=== PATIENT | female | born 1960 | race Caucasian/White ===

== ENCOUNTER 2016-12-01 04:51 | Day surgery (SDC) | payer OTHER ==
[2016-11-17 10:29] VITALS: BMI 40.0
[~2016-12-01] VITALS: Ht 165.1 cm; Wt 109.1 kg
[~2016-12-01 04:51] MED LIST: ACIT1CAP PO; CLOB-77 TOP; MECL1TAB42 PO; MULT-506 PO; OXYBUTYNIN PO; OXYC-609 PO; PRLSR20 PO; RANI300T2 PO; TRAM-10 PO
[2016-12-01 05:39] VITALS: BP 149/76; PULSE 76; TEMP 36.4; O2SAT 94; Ht 165.1 cm; Wt 109.1 kg
[2016-12-01] MEDS ORDERED: SCOPOLAMINE 1.5 MG TDSY TD SCH (06:00)
[2016-12-01] MEDS ORDERED: CEFAZOLIN 2000 MG/60 ML D5W IV SCH (06:00)
[2016-12-01] MEDS ORDERED: LACTATED RINGER'S 1000ML IV SCH (06:00)
[2016-12-01] MEDS ORDERED: MIDAZOLAM HCL 1 MG/ML 2ML VIAL ONE (06:48)
[2016-12-01] MEDS ORDERED: FENTANYL CITRATE INJ 50 MCG/1 ML 2 ML VIAL ONE ×2 (06:48→07:41)
--- NOTE | 2016-12-01 07:03 | History & Physical Bridge Note ---
H&P Re-Evaluation Bridge Note: I have examined the patient, reviewed the History & Physical and in the interval since the performance of the History & Physical I have noted the following changes of clinical significance: No changes noted
[2016-12-01] MEDS ORDERED: ONDANSETRON INJ 2 MG/ML 2 ML VIAL IV PRN ×2 (07:15→09:00)
[2016-12-01] MEDS ORDERED: ATROPINE SULFATE 0.1 MG/ML 5ML SYR IV PRN (07:15)
[2016-12-01] MEDS ORDERED: EpHEDrine SULFATE INJ 50 MG/ML AMP IV PRN (07:15)
[2016-12-01] MEDS ORDERED: ONDANSETRON INJ 2 MG/ML 2 ML VIAL ONE (07:40)
[2016-12-01] MEDS ORDERED: ROCURONIUM BROMIDE 10 MG/ML 5 ML VIAL ONE (07:40)
[2016-12-01] MEDS ORDERED: LIDOCAINE HCL 2% 2 ML VIAL (20MG/ML) ONE (07:40)
[2016-12-01] MEDS ORDERED: DEXAMETHASONE SOD INJ 4 MG/ML VIAL ONE (07:40)
[2016-12-01] MEDS ORDERED: PROPOFOL IV EMULSION 10 MG/ML 20 ML VIAL IV ONE (07:40)
[2016-12-01] MEDS ORDERED: LABETALOL HCL IV 5 MG/ML 20ML ONE (07:51)
[2016-12-01] MEDS ORDERED: GLYCOPYRROLATE INJ 0.2 MG/ML VIAL ONE (07:54)
[2016-12-01] MEDS ORDERED: NEOSTIGMINE METHYLSULFATE 5 MG/5 ML SYR ONE (07:54)
[2016-12-01] MEDS ORDERED: BUPIVACAINE 0.5 % 5 MG/1 ML MPF 30ML VIAL INJ ONE (08:38)
[2016-12-01] MEDS ORDERED: ORM MISCELLANEOUS MED XX ONE (08:40)
--- NOTE | 2016-12-01 08:52 | [facility] Post Operative Brief Note ---
Immediate Operative Summary Operative Date Dec 01, 2016. Pre-Operative Diagnosis Cholelithiasis Post-Operative Diagnosis Same as preoperative Procedure(s) Performed Laparoscopic Cholecystectomy Surgeon Dr Singh Publication Designer Surgeon(s) Lisa Barker PA-C Estimated Blood Loss 10 Findings See dictation Specimens A: Gallbladder and contents Drains None Anesthesia General Complication(s) None Disposition Recovery Room / PACU
--- NOTE | 2016-12-01 08:55 | Discharge Instructions ---
Discharge Instructions Admission Reason for Admission: Right Uppper Quadrant Abdominal Pain Discharge Discharge Diagnosis / Problem: Same Discharge Goals Goal(s): Decrease discomfort Activity Recommendations Activity Limitations: per Instructions/Follow-up section Lifting Limitations: no more than 10 pounds Shower/Bathe: tomorrow (Shower only) . Instructions / Follow-Up Instructions / Follow-Up Post-Surgical ~ Discharge Instructions Activity Recommendations: - lifting limitation: (10 pounds for 2 weeks), - exercise/sex/sports limit: (nonstrenuous for 2 weeks), - driving or machine use limit: (none for 1 week), - Shower/bathe limit: (may shower beginning tomorrow) Diet: - Resume previous diet SPECIAL CARE INSTRUCTIONS: - May shower in 24 hours. Let water run over area and pat dry. - Leave steri strips on for one week. - Call the surgeon's office with any questions or concerns - - (ex. temperature higher than 101 degrees F, excessive bleeding or pain). MEDICATIONS: - Resume previous medications unless instructed otherwise by your surgeon. - Ibuprofen 600 mg every 6 hours with food - Percocet 1 every 4 hours, as needed for pain FOLLOW UP VISIT: - If not already scheduled, please call the office to schedule a two week follow-up appointment. Office number Current Hospital Diet Patient's current hospital diet: Discharge Diet Recommended Diet: Regular Diet Procedures Procedures Performed: Laparoscopic Cholecystectomy Pending Studies Studies pending at discharge: no Medical Emergencies . Who to Call and When: Medical Emergencies: If at any time you feel your situation is an emergency, please call 911 immediately. . Non-Emergent Contact Non-Emergency issues call your: Primary Care Provider, Surgeon Call Non-Emergent contact if: your pain is worsening, wound has increased redness, wound has increased pain . "Provider Documentation" section prepared by Amando Singh. VTE Core Measure Inpt VTE Proph given/why not?: Treatment not indicated
[2016-12-01] MEDS ORDERED: SODIUM CHLORIDE 0.9% 1000ML 1,000 ML IV SCH (08:56)
[2016-12-01] MEDS ORDERED: HYDROmorphone INJ 1 MG/ML SYR IV PRN (09:00)
[2016-12-01] MEDS ORDERED: OXYCODONE/ACETAMINOPHEN 5-325 TAB PO PRN (09:00)
[2016-12-01] MEDS: FENTANYL CITRATE INJ 50 MCG/1 ML 2 ML VIAL IV PRN ×2 (09:08→09:15)
--- NOTE | 2016-12-01 09:20 | OPERATIVE REPORT ---
DATE OF OPERATION: 12/01/2016 PREOPERATIVE DIAGNOSES: Cholelithiasis, chronic cholecystitis. POSTOPERATIVE DIAGNOSES: Same with probable component of acute cholecystitis. PROCEDURE: Laparoscopic cholecystectomy. SURGEON: Amando Singh MD INTERACTIVE MEDIA DIRECTOR: Anabelle Reyes PA-C FINDINGS: The gallbladder wall was thickened. There was a large stone within the lumen of the gallbladder. There was a lot of edema surrounding the gallbladder wall as well as in the tissue surrounding the duct and artery. The duct was small. There was no dilation of the duct. There was some mild nodularity to the surface of the liver. It was mildly enlarged. There was no abnormality of the visible bowel. TECHNIQUE: The patient was given a general anesthetic and the area was prepped and draped in usual sterile fashion. Transverse incision was made below the umbilicus, carried down through the subcutaneous tissue to the fascia which was grasped with 2 Eliana clamps and incised between. The peritoneum was identified, incised, and the introducer was placed bluntly. The abdomen was then insufflated to a pressure of 15 mmHg with carbon dioxide. The upper midline, mid clavicular, and anterior axillary introducers were placed under direct vision through small skin incisions. We attempted to place traction on the gallbladder. I then passed the drainage needle. Some bile was removed, but the contents were thick. I was then able to grasp the gallbladder and elevate it. The duodenum was adherent to the infundibulum area. These adhesions were taken down using blunt dissection. That allowed me to identify the infundibulum. There were attachments of the lateral side to the liver and these were divided. I then opened the peritoneum on that side, peeled it down towards the common bile duct and worked up along the lateral side of the infundibulum and it away from the liver. I then opened the triangle of Calot and peeled fatty tissue, connective tissue, and some lymphatics towards the common bile duct and dissected the gallbladder away from the liver on that side allowing for better mobility of the infundibulum. That allowed me then to peel additional fatty tissue and connective tissue down towards the common bile duct and identify the anterior surface of the cystic duct. I then worked on the medial and lateral side freeing additional connective tissue and was able then to establish a plane behind the cystic duct isolating in 360 degrees. That also allowed me to confirm the position of the gallbladder cystic duct junction. Three clips were placed on the proximal cystic duct, 1 near the gallbladder and it was divided. Further dissection was carried out posteromedial to that where there were 2 branches of the cystic artery identified. Each of these was individually isolated, clamped and divided. There was a large venous structure on the medial side entering the gallbladder was also clamped and divided. That allowed me then to peel the gallbladder off the liver bed. There was a plane established by some edema that made that dissection a little more straightforward. Once the gallbladder was from the liver, it was placed into an Endobag and brought out through the upper midline incision. Because of the thickening of the wall and size of the stone, I had to open the incision and also opened the fascial layers in order to extract it but that was accomplished. The introducer was replaced and the abdomen was reinsufflated. The liver edge was elevated and the gallbladder bed of the liver was inspected. There was no bleeding. There was a small amount of bleeding from incision site just medial to the gallbladder bed of the liver and that was cauterized. The subdiaphragmatic and subhepatic spaces were irrigated and the irrigation removed. The site of bleeding was inspected and there was no further oozing. The gallbladder bed of the liver was again inspected and there was no bleeding. The clips were intact. Gas was allowed to escape and the introducers were removed. The fascia of the umbilical and upper midline introducer sites was closed with interrupted 0 Vicryl and the skin of all the incisions was closed with 4-0 Monocryl in either an interrupted or running subcuticular fashion. The skin was anesthetized with 0.5% Marcaine. The skin was cleansed, dried, benzoin placed. Steri-Strips applied. The estimated blood loss was 10 mL. Sponge, needle and instrument counts were correct prior to closure. The patient tolerated the surgical procedure without complication and was transferred to recovery. I attest to the content of the Intraoperative Record and any orders documented therein. Any exceptions are noted below. JORGE LUIS
--- NOTE | 2016-12-01 09:35 | Anesthesiology Progress Note ---
Anesthesia Post Op Note Date & Time Dec 01, 2016 at 09:35 Vital Signs Pain Intensity: 4 Vital Signs Past 12 Hours Date Time Temp Pulse Resp B/P Pulse Ox O2 Delivery O2 Flow Rate FiO2 12/01/16 09:30 69 12 148/91 96 Room Air 12/01/16 09:20 71 12 148/91 94 Mask 10 12/01/16 09:10 36.9 63 12 143/87 97 Mask 10 12/01/16 09:01 36.9 70 12 174/92 96 Mask 10 12/01/16 05:39 36.4 76 16 149/76 94 Room Air Notes Mental Status: alert / awake / arousable, participated in evaluation Pt Amnestic to Procedure: Yes Nausea / Vomiting: adequately controlled Pain: adequately controlled Airway Patency, RR, SpO2: stable & adequate BP & HR: stable & adequate Hydration State: stable & adequate Anesthetic Complications: no major complications apparent
[2016-12-01 09:45] VITALS: BP 151/84; PULSE 67; TEMP 36.5; O2SAT 6
[2016-12-01 10:15] VITALS: BP 151/84; PULSE 66; O2SAT 6
[2016-12-01 10:45] VITALS: BP 144/80; PULSE 69; TEMP 36.8; O2SAT 6
[2016-12-01] MEDS ORDERED: CHECK SCOPOLAMINE PATCH PLACEMENT SCH (16:00)
== END 2016-12-01 11:05 | disposition home or self-care (01) ==
LOC: C.ACU 04:51
PROVIDERS: ATTEND Surgery
DX: K80.10 Calculus of gallbladder with chronic cholecystitis without obstruction (principal); E78.5 Hyperlipidemia, unspecified; F17.210 Nicotine dependence, cigarettes, uncomplicated; Z98.890 Other specified postprocedural states